=== PATIENT | female | born 1950 | race Caucasian/White ===

== ENCOUNTER 2017-10-13 12:56 | Inpatient (IN) ==
--- NOTE | 2017-10-13 13:09 | History & Physical Report ---
Date of Encounter: 10/13/17 Time of Encounter: 13:08 24 Hour HP Update - Instructions Instructions: If the History and Physical is less than 30 days old and was completed prior to A.M. admission and or procedure and has NOT been updated on calendar day of procedure please complete this update prior to performing procedure. - Update Patient reports changes in Medical Condition: No Changes in examination, assessment, or condition: No Changes in Medication: No Preop tests/diagnostics Reviewed: Yes Surgery Remains Indicated: Yes Consent for Planned Operative Procedure(s) Verified: Yes
[2017-10-13] MEDS ORDERED: Plasma-Lyte A (PH 7.4) 1,000 ML IVC SCH (13:15)
[2017-10-13] MEDS ORDERED: Clindamycin 900 MG/50 ML 900 MG/50 ML IV.SOLN IVPB ONE (13:15)
[2017-10-13] MEDS ORDERED: Pregabalin 75 MG CAPSULE PO ONE (14:03)
[2017-10-13] MEDS ORDERED: *HR* Methadone 10 MG TABLET PO ONE ×2 (14:03→14:11)
--- NOTE | 2017-10-13 14:04 | Anesthesia Evaluation PreOp ---
Date of Encounter: 10/13/17 Time of Encounter: 14:02 - Past History Planned Operation: Left TSA Cardiac History: Denies any Significant Hx Pulmonary History: Denies Any Significant HX [employer] History: Denies Any Significant HX Other Medical History: Diabetes Type II, Thyroid, Other (Obesity) Anesthesia History: No Prior Anesthetic Complications, Past Anesthesia Alcohol Use: none Drug use: none Medications and Allergies Diclofenac Sodium [Voltaren] 75 mg PO BID 10/13/17 [History] Furosemide [Lasix] 40 mg PO DAILY 10/13/17 [History] Gabapentin [Neurontin] 300 mg PO BID 10/13/17 [History] Insulin DETEMIR [Levemir] 30 unit SQ HS 10/13/17 [History] Levothyroxine Sodium [Levoxyl] 112 mcg PO DAILY 10/13/17 [History] Lisinopril 2.5 mg PO DAILY 10/13/17 [History] Metformin HCl [Glucophage] 1,000 mg PO BID 10/13/17 [History] Simvastatin [Zocor] 20 mg PO HS 10/13/17 [History] 3 Allergy/AdvReac Type Severity Reaction Status Date / Time Penicillins Allergy Anaphylaxis Verified 10/13/17 13:37 - Meds/Allergy Pre-op Review Medications Reviewed: Yes (Lisinopril for renal protection) Allergies Reviewed: Yes Beta Blockers on Current Med List: No Anesthesia Results - Labs Laboratory Tests 09/28/17 09/28/17 09/28/17 11:00 11:00 11:00 Hgb 14.2 Hct 43.1 Plt Count 250 Sodium 138 Potassium 4.1 Creatinine 0.69 Est GFR (Non-Af Amer) > 60 POC Glucose Hemoglobin A1c 6.4 H Calcium 9.9 10/13/17 13:12 Hgb Hct Plt Count Sodium Potassium Creatinine Est GFR (Non-Af Amer) POC Glucose 94 Hemoglobin A1c Calcium Anesthesia Exam O2 Sat Height 1.73 m Weight 113.398 kg BMI 38 Vital Signs Temp Pulse Resp BP Pulse Ox 97.4 F L 60 18 155/65 95 10/13/17 13:14 10/13/17 13:14 10/13/17 13:14 10/13/17 13:14 10/13/17 13:14 - HEENT Mallampati: II Teeth: Edentulous Oral Opening: Greater than 3 - Cardiac Rhythm: Regular - Pulmonary Breath Sounds: bilateral Clear Anesthesia Assess/Plan ASA Score: 2 Modified Brittanie Scale for Level of Consciousness: Cooperative, oriented, and tranquil Anesthetic Plan: General, Regional (For post operative pain) Monitoring Plan: Standard Monitors Recovery Plan: PACU Anes Supervising Prov Stmt: Patient informed and consented. Risks, benefits, and alternatives discussed. Patient wishes to proceed.
[2017-10-13] MEDS ORDERED: ROPIVACAINE HCL/PF 0.5% 30 ML VIAL ONE (14:29)
[2017-10-13] MEDS ORDERED: Bupivacaine/Clonidine Syringe 1 EACH SYRINGE ONE (14:30)
[2017-10-13] MEDS ORDERED: *HR* FentaNYL (PF) 100 MCG/2 ML VIAL ONE ×2 (15:03→15:58)
[2017-10-13] MEDS ORDERED: EPHEDrine 50 MG/ML VIAL ONE (15:16)
[2017-10-13] MEDS ORDERED: Tranexamic Acid 1,000 MG/10 ML VIAL ONE ×2 (15:21→16:35)
[2017-10-13] MEDS ORDERED: *HR* FentaNYL (PF) 100 MCG/2 ML VIAL IVP PRN (15:45)
[2017-10-13] MEDS ORDERED: Ondansetron 4 MG/2 ML VIAL IVP ONE (15:45)
[2017-10-13] MEDS ORDERED: *HR* Promethazine 25 MG/ML VIAL IVP PRN (15:45)
[2017-10-13] MEDS ORDERED: *HR* Labetalol 20 MG/4 ML SYRINGE IVP PRN (15:45)
[2017-10-13] MEDS ORDERED: *HR* OxyCODONE Immed Rel 5 MG TABLET PO PRN ×2 (15:45→17:32)
--- NOTE | 2017-10-13 15:49 | Anesthesia Procedures ---
Date of Encounter: 10/13/17 Time of Encounter: 14:45 Procedures: Anesthesia - Nerve Block Procedure Date: 10/13/17 Time: 14:45 Allergies/Adv Reactions: PCN Pre-op Diagnosis: shoulder arthropathy Surgical Procedure: total shoulder Checklist: Correct Patient Identifier, Correct procedure, History checked Correct side: Left Blood Thinner: No Monitor Applied: EKG, BP, Pulse Oximetry Supplemental Oxygen via Nasal Cannula (L/min): 2 Sedation: Versed (mg): 2 Sedation: Fentanyl (mcg): 100 Indication: Post Op Analgesia Pre-op Neuro Deficits: No Block Type: Supraclavicular, Other (superficial cervical plexus (SCP)) Sterile Technique: Yes Ultrasound used: Yes Anatomy identified: Yes Visual spread of Local: Yes Blood on Needle Aspiration: No Smooth Injection of Local: Yes Pain with Injection of Local: No Prep: Chlorhexadine Needle: 22 x 50 mm Stimuplex Local: 0.25% Bupivicaine w/Clonidine 20 mcg/cc (8cc for SCP), Ropivacaine (30cc for Supraclavicular) Number of Attempts: 1 Complications: None/effective block Vitals: Vital Signs/O2 Sat, Most Current Temp Pulse Resp BP Pulse Ox 97.4 F L 65 16 145/54 98 10/13/17 13:14 10/13/17 14:39 10/13/17 14:39 10/13/17 14:39 10/13/17 14:39
[2017-10-13] MEDS ORDERED: *HR* Rocuronium Bromide 50 MG/5 ML VIAL ONE (15:55)
[2017-10-13] MEDS ORDERED: *HR* Midazolam HCl 2 MG/2 ML VIAL ONE (15:58)
[2017-10-13] MEDS ORDERED: Dexamethasone 4 MG/ML VIAL ONE (15:58)
[2017-10-13] MEDS ORDERED: Lidocaine -MPF 4% 5 ML AMPUL ONE (15:58)
[2017-10-13] MEDS ORDERED: *HR* Propofol 200 MG/20 ML VIAL IVP ONE (15:58)
[2017-10-13] MEDS ORDERED: Lidocaine -MPF 2% 2 ML VIAL ONE (15:58)
[2017-10-13] MEDS ORDERED: Ondansetron 4 MG/2 ML VIAL ONE (15:58)
[2017-10-13] MEDS ORDERED: Neostigmine Methylsulfate 3 MG/3 ML SYRINGE ONE (16:13)
--- NOTE | 2017-10-13 17:22 | Anesthesia Evaluation Post Op ---
Date of Encounter: 10/13/17 Time of Encounter: 17:21 - Vital Signs Vital Signs: vss - Lungs Lungs: Clear Ascult./Percussion - Airway Airway: Non-obstructed - Cardiovascular Baseline Rhythm - Mental Status Mental Status: Asleep with brisk response to light stimulation - Pain Pain Scale used: Numeric (1 - 10) (0) - Nausea Vomiting Nausea Vomiting: Not Present - Hydration Hydration: Ice chips - Discharge PostOp Status: Transfer Patient to floor
--- NOTE | 2017-10-13 17:24 | Orthopedic Operative Note ---
Date of procedure: 10/13/17 Procedure: Procedure: Left reverse total shoulder arthroplasty Preoperative Diagnosis: Left shoulder cuff tear arthropathy Postoperative diagnosis: Same Surgeon: Jacques Desai M.D. Anesthesia: General with interscalene block Asst.: None EBL: 100 mL Components used: Tornier Aequalis Ascent flex 4B stem, +0 low offset tray, 36+6 mm polyethylene, 25 mm standard post baseplate, 36 x 25 mm glenosphere 10 degree tilted Complications: None Indications: This is a 67-year-old female who has had a 7 month history of left shoulder pain, both with activity and at rest, with no known injury. Exam findings and imaging findings were consistent with glenohumeral arthritis and cuff tear arthropathy with superior subluxation of the humeral head. She had significant limitation in active range of motion with forward elevation. The patient had attempted nonsurgical management with a corticosteroid and anti- inflammatories, as well as attempts at PT. She had continued pain despite nonoperative treatment and so she has elected for a left reverse shoulder replacement. The risks and benefits of the procedure were fully explained to the patient. These risks include, but are not limited to, the risk of infection , neurovascular injury, continued pain and stiffness of the shoulder, need for further surgery, DVT, PE, loss of limb and loss of life. The patient did understand all of these risks and wishes to proceed. Informed consent was then obtained. Operative procedure: The patient was brought back to the OR suite by the anesthesia staff. The patient was then placed supine on the operating table and all bony prominences were padded. The anesthesiologist then performed successful general anesthetic for the remainder of the case. The head, neck and airway were secured and protected by anesthesia. The bed was elevated about 30 degrees. The left upper extremity was then prepped and draped in the normal sterile orthopedic fashion and placed in the Trimano arm petersen. Preoperative antibiotics were then given prior to incision. A timeout was performed confirming the correct patient, site and side, procedure to be performed and any allergies. All were in agree and we did proceed. A standard deltopectoral approach was performed. We dissected down through the skin coagulating any bleeders were encountered. The cephalic vein was then identified and taken laterally with the deltoid. Adhesions were cleared from underneath the deltoid and a brown retractor was placed. The interval between the deltoid and pectoralis was then developed and kolbel retractor was placed. A Darrach retractor was then placed under the acromion. The biceps tendon was exposed and identified, and then released proximally. Soft tissue tenodesis of the remaining biceps was then performed. The lateral border of the conjoined tendon was then identified and a subscapularis release was performed. The subscapularis was released from the rotator interval down the anterior aspect of the humerus. The capsule was then released from the anterior aspect of the humerus around inferiorly to the back of the humerus. The humerus was subluxed anteriorly and osteophytes were removed. The supraspinatus was not intact. There was end-stage arthritis of the humeral head. A humeral osteotomy was then performed, and the humerus was sounded and broached to the appropriate size. Attention was then turned to the glenoid. The humerus was subluxed posteriorly and retractors were placed on the anterior and posterior aspects of the glenoid. A 360 degree release of the subscapularis was performed, and the axillary nerve was palpated and protected throughout the case. Labral debridement was then performed. There was end-stage arthritis on the glenoid with less than 10 degrees of retroversion. A central guide pin was placed in the appropriate position on the glenoid. Central drill hole was drilled and the glenoid was then reamed in accordance with the aequalis reverse shoulder system. The glenoid baseplate was impacted in place and 4 peripheral drill holes were drilled and filled with the appropriate length screws, 2 in compression, 2 locking. The final glenosphere was then impacted and the glenoid sphere screw was tightened in place. Attention was turned back to the humerus. The humerus was subluxed back anteriorly and a trial humeral stem, tray and poly trials were placed. Trial humeral reverse trays and poly were then placed until the most appropriate size was identified. The trial size 36+6 mm poly and low offset tray was tested and had excellent range of motion, and stability was verified. The final component was assembled on the back table and then inserted, and the shoulder was reduced. Again the shoulder was taken through range of motion and there was excellent range of motion and stability. The wound was then copiously irrigated with irricept and normal saline. The deltopectoral interval was tagged with 2-0 surgilon, and the incision was closed with 2-0 stratafix deep and a running 3-0 stratafix subcuticular. Sterile dressing was placed, the arm was placed in a sling and the patient was taken to the PACU in stable condition. There were no complications during the case. Post op plan: The patient will go into the reverse shoulder protocol and will be admitted overnight. Was there an clinic office assistant present: No Estimated blood loss (cc): 100
[2017-10-13] MEDS ORDERED: Sennosides 8.6 MG TABLET PO PRN (17:32)
[2017-10-13] MEDS ORDERED: *HR* OxyCODONE/APAP 5/325 TABLET PO PRN (17:32)
[2017-10-13] MEDS ORDERED: Ondansetron 4 MG/2 ML VIAL IVP PRN (17:32)
[2017-10-13] MEDS ORDERED: Naloxone 0.4 MG/ML INJ IVP PRN (17:32)
[2017-10-13] MEDS ORDERED: MOM Conc 10 ML UD.LIQ PO PRN (17:32)
[2017-10-13] MEDS ORDERED: Temazepam 15 MG CAPSULE PO PRN (17:32)
[2017-10-13] MEDS ORDERED: traMADol 50 MG TABLET PO PRN (17:32)
[2017-10-13] MEDS ORDERED: Ketorolac 15 MG/ML VIAL IVP PRN (17:32)
[2017-10-13] MEDS: Ringers Solution, Lactated 1,000 ML IVC SCH ×2 (18:01→21:01)
[2017-10-13] MEDS: *HR* Metformin 500 MG TABLET PO SCH (21:00)
[2017-10-13] MEDS ORDERED: Insulin DETEMIR 100 UNIT/ML X5UNITS SQ SCH (21:00)
[2017-10-13] MEDS ORDERED: NON-FORMULARY MEDICATION 1 EACH EACH (Insulin Detemir 30 UNIT) SQ SCH (21:00)
[2017-10-13] MEDS: Gabapentin 300 MG CAPSULE PO SCH (21:00)
[2017-10-13] MEDS: Clindamycin 900 MG/50 ML 900 MG/50 ML IV.SOLN IVPB SCH (23:53)
[2017-10-14 02:56] LABS: Hematocrit 36.6 % (35.3-44.9); Hemoglobin 12.2 g/dL (11.5-15.4)
[2017-10-14 07:25] VITALS: BP 124/65
[2017-10-14] MEDS: *HR* Metformin 500 MG TABLET PO SCH (08:25)
[2017-10-14] MEDS: Gabapentin 300 MG CAPSULE PO SCH (08:25)
[2017-10-14] MEDS: Clindamycin 900 MG/50 ML 900 MG/50 ML IV.SOLN IVPB SCH (08:26)
[2017-10-14] MEDS ORDERED: Furosemide 40 MG TABLET PO SCH (09:00)
--- NOTE | 2017-10-14 10:52 | Orthopedics Progress Note ---
Date of Encounter: 10/14/17 Time of Encounter: 10:48 Subjective Interval history: S: Doing well 1 day s/p left reverse TSA. Block is in place but wearing off. Minimal shoulder pain. No fevers or chills, no nausea or vomiting overnight. O: AFVSS GEN: NAD, AAOx3 LUE: Dress in place, c/d/i No erythema or drainage SILT over M/R/U/Ax nerve distribution Able to wiggle fingers, cross over, abduct fingers, give thumbs up 2+ radial pulse A/P: POD#1 s/p L reverse TSA -Phase I PT evaluation today -Continue po pain medication as needed -Discharge planning, likely d/c today if still feeling good and cleared by PT Objective Vital signs: Vital Signs Temp Pulse Resp BP Pulse Ox 10/14/17 07:17 97.9 F 63 15 124/65 95 10/14/17 04:16 97.5 F L 66 18 110/63 95 10/14/17 01:04 97.6 F 61 18 106/56 95 10/13/17 20:52 97.6 F 76 15 122/57 94 10/13/17 19:59 97.7 F 66 18 107/59 93 10/13/17 19:40 98.2 F 68 15 120/69 95 10/13/17 18:34 97.7 F 66 16 125/76 95 10/13/17 18:08 98.3 F 64 15 128/61 95 10/13/17 17:46 98.6 F 66 15 130/66 93 10/13/17 17:31 97.9 F 66 16 121/69 97 10/13/17 17:21 66 16 129/56 97 10/13/17 17:11 63 16 124/59 95 10/13/17 17:01 98.6 F 75 20 140/66 94 10/13/17 14:39 65 16 145/54 98 10/13/17 13:14 97.4 F L 60 18 155/65 95 Intake and Output 10/13/17 10/14/17 10/14/17 23:59 07:59 15:59 Intake Total 1000 / 1000 150 / 150 480 / 480 Output Total 800 / 800 1225 / 1225 Balance 200 / 200 -1075 / -1075 480 / 480 Intake: IV Fluids 1000 / 1000 50 / 50 Lactated Ringers 1,000 ML @ 75 1000 / 1000 mls/hr IVC .[id number] DES Rx#: [id number] Cleocin Premix 900 MG/50 ML 900 50 / 50 mg In 50 ml @ 50 mls/hr IVPB Q8HR DES Rx#:[id number] Oral 0 / 0 100 / 100 480 / 480 Output: Urine 700 / 700 1225 / 1225 Estimated Blood Loss 100 / 100 Other: Meal Breakfast Percent of Meal Consumed 100% # Voids 0 0 Weight 119.6 kg Blood Glucose* 258 202 Patient Weight 10/14/17 23:59 Weight 119.6 kg - Labs CBC & BMP: 10/14/17 01:22 Labs: Abnormal lab results POC Glucose 258 mg/dL (70-99) H 10/13/17 20:05 - VTE Documentation of Mechanical Device: Venous foot pump, device Consult Discharge Plan - Plan Referrals: Miryam Arroyo, [employer] [Primary Care Provider] -
--- NOTE | 2017-10-14 11:06 | Discharge Summary ---
Orders not resulted at time of discharge: Pending orders 10/13/17 14:21 US anesthesia pain block [US] Routine 10/13/17 16:38 Surgical Pathology [PTH] Routine 10/15/17 04:00 Hemoglobin and Hematocrit [HEME] AM 0400 Date of Encounter: 10/14/17 Time of Encounter: 11:04 - Hospital Course Hospital course: Ms. Adhikari is a 67 year old female admitted overnight following a left reverse TSA done 10/13/17. She did well following surgery with no overnight issues. She was able to be discharged home on post op day 1 after working with and being cleared by therapy. - Time Spent with Patient Total time spent providing and/or coordinating discharge services: - Discharge Medications Home Medications: Furosemide [Lasix] 40 mg PO DAILY 10/13/17 [History] Gabapentin [Neurontin] 300 mg PO BID 10/13/17 [History] Insulin DETEMIR [Levemir] 30 unit SQ HS 10/13/17 [History] Levothyroxine Sodium [Levoxyl] 112 mcg PO DAILY 10/13/17 [History] Metformin HCl [Glucophage] 1,000 mg PO BID 10/13/17 [History] RX: Diclofenac Sodium [Voltaren] 75 mg PO BID 10/13/17 [History] RX: Lisinopril 2.5 mg PO DAILY 10/13/17 [History] Simvastatin [Zocor] 20 mg PO HS 10/13/17 [History] Allergies/Adverse Reactions: 3 Allergy/AdvReac Type Severity Reaction Status Date / Time Penicillins Allergy Anaphylaxis Verified 10/13/17 13:37 Date of admission: 10/14/17 09:42 Primary care physician: Miryam Arroyo Consults: 10/13/17 17:32 Consult to Occupational Therapy [CONS] Routine Comment: post shoulder surgery Reason for Consult: post shoulder surgery Does patient have active BEDREST order?: No Is patient medically & hemodynamically stable?: Yes Consult to Orthopedic Navigator [CONS] [CONS] Routine Consult to Physical Therapy [CONS] Routine Comment: post shoulder surgery Reason for Consult: post shoulder surgery Does patient have active BEDREST order?: No Is patient medically & hemodynamically stable?: Yes RT Post Op Consult [CONS] Routine - VTE Documentation of Mechanical Device: Venous foot pump, device Labs on day of discharge: Labs from last 24 hours 10/14/17 10/13/17 10/13/17 01:22 20:05 13:12 Hgb 12.2 Hct 36.6 POC Glucose 258 H 94 - Impressions ITS Impressions Shoulder X-Ray 10/13/17 17:06 IMPRESSION: Satisfactory appearance status post left shoulder arthroplasty. D/ / Eric Park MD / Eric Park MD Interpreting Provider: Eric Park MD - Patient Status Disposition: Home, Self-Care Condition: Good Functional capacity at discharge: independent ambulation Overall status at discharge: patient is progressing back to baseline - Discharge Instructions Follow Up With: Miryam Arroyo CNP [Primary Care Provider] - Jacques Desai MD [Non-Partnered Physician] - 10/25/17 9:45 am Additional Instructions: Discharge Instructions: Total Shoulder Please call [facility] ([phone]), your Primary Care Physician, or report to the Emergency Room if you have any of the following symptoms: Nausea, vomiting, fever greater that 101.5, swelling, chest pain, shortness of breath, increased pain/redness/drainage/odor for your incision site, numbness/ tingling, or any other concerning symptoms. ACTIVITY: Always keep your arm in the sling. Do not raise your arm away from your body. Do not use your arm to help with getting in or out of bed. No weight bearing permitted. Only perform those exercises given to you by your therapist. MEDICATIONS: Upon discharge resume your home medications. Take all the medications as prescribed. Take a stool softener if taking narcotic pain medications. Stool softeners are only effective if you drink enough fluids. Drink 6-8 glass of water or fluids a day, unless this is not allowed for another health problem. Despite using stool softeners, if you haven't had a bowel movement in 3 days, please switch to a gentle laxative. Gentle laxatives are sold over the counter. You should have a bowel movement within 24 hours, if not call the office. You will be discharged from the hospital with a prescription for pain medication. You are encouraged to decrease the use of narcotic pain medication as tolerated. Should you require a refill, please call the office. [facility] prescribes narcotic pain medication for only 4-6 weeks after surgery. If you require pain medication beyond this time period, you may be referred to your Primary Care Physician or to the Pain Clinic for further evaluation. Plan ahead for refills on pain medication as many narcotics either need to be picked up at the office or mailed. It is best to call 48-72 hours in advance of needing a prescription refill so you don't run out of medication. To help control the post-operative pain, you may take NSAIDs (Aleve,Advil, Motrin, Ibuprofen, Naprosyn) or Tylenol as prescribed on the bottle in addition to the pain medication. WOUND CARE: Leave the dressing on for 7-10 days. You may change the dressing if it becomes saturated greater than 50%. Do not get the dressing wet at anytime. Wash your hands with antibacterial soap, rinse and dry prior to any wound care. If you have harvey the visiting nurse or rehab facility can remove the stapes 10-14 days after surgery and place steri-strips across the wound. Leave the steri-strips in place until they fall off on their own. You may let water from the shower run on top of the steri-strips. If you do not have a visiting nurse or rehab facility, you will need to return to the office at 10-14 days for the harvey to be removed. If you have itching or redness around the dressing call the office. FOLLOW-UP: Please follow up with your surgeon in the orthopedic clinic, as scheduled - Diet and Activity Activity: as per physical therapy Diet: advance to your usual diet
[2017-10-14] MEDS ORDERED: Aspirin Enteric Coated 325 MG Tablet PO SCH (17:09)
== END 2017-10-14 12:30 | disposition home or self-care (01) | DRG 483 ==
LOC: SAMDAY 12:56 → 3NENU 17:32
PROVIDERS: ADMIT Orthopaedic Surgery Sports Medicine; ATTEND Orthopaedic Surgery Sports Medicine